=== PATIENT | male | born 1990 | race Caucasian/White ===

== ENCOUNTER 2017-05-14 20:08 | Emergency (ER) | payer OTHER ==
[~2017-05-14] VITALS: Ht 172.7 cm; Wt 95.3 kg
[2017-05-14 21:46] LABS: ABSOLUTE BASOPHILS 0.1 thou/uL (0.0-0.2); ABSOLUTE EOSINOPHILS 0.1 thou/uL (0.0-0.7); ABSOLUTE LYMPHOCYTES 2.4 thou/uL (0.8-5.3); ABSOLUTE MONOCYTES 0.6 thou/uL (0.0-1.2); ABSOLUTE NEUTROPHILS 5.3 thou/uL (1.6-8.1); BASOPHILS 0.8 %; EOSINOPHILS 1.1 %; HEMATOCRIT 40.2 % (42.0-52.0); HEMOGLOBIN 13.9 gm/dL (14.0-18.0); LYMPHOCYTES 28.5 %; MCHC 34.7 g/dL (28.0-37.0); MCV 89.2 fL (80.0-100.0); MPV 7.5 fl. (7.2-11.1); NUCLEATED RBCS 0 /100WBC; PLATELET COUNT* 234 thou/uL (150-400); POLYS 62.6 %; RDW-CV 12.6 % (10.5-14.5); WBC 8.6 thou/uL (4.0-11.0)
[2017-05-14 21:48] LABS: URINE BILIRUBIN NEGATIVE (Negative); URINE BLOOD NEGATIVE (Negative); URINE CLARITY CLEAR; URINE COLOR YELLOW; URINE GLUCOSE-RANDOM NEGATIVE (Negative); URINE KETONES NEGATIVE (Negative); URINE LEUKOCYTES-REFLEX NEGATIVE (Negative); URINE NITRITE-REFLEX NEGATIVE (Negative); URINE PROTEIN NEGATIVE (Negative); URINE SPECIFIC GRAVITY 1.015 (1.005-1.030); URINE UROBILINOGEN 0.2 E.U./dl (0.2-1.0)
[2017-05-14 21:53] LABS: ANION GAP 10 mmol/L (7-16); BUN 17 mg/dL (7-18); CALCIUM 8.8 mg/dL (8.5-10.1); CHLORIDE 102 mmol/L (98-107); CO2 29 mmol/L (21-32); GLUCOSE 96 mg/dL (70-99); POTASSIUM 3.8 mmol/L (3.5-5.1); SODIUM 141 mmol/L (136-145)
[2017-05-14 21:55] LABS: AMP/METHAMP Negative (Negative); BARBITURATES Negative (Negative); BENZODIAZEPINES Negative (Negative); COCAINE Negative (Negative); METHADONE Negative (Negative); OPIATES Negative (Negative); PCP Negative (Negative); THC Negative (Negative)
[2017-05-14 22:05] LABS: ALBUMIN 4.1 g/dL (3.4-5.0); ALKALINE PHOSPHATASE 78 U/L (46-116); SGOT 17 U/L (15-37); SGPT 28 U/L (30-65); TOTAL BILIRUBIN 0.5 mg/dL (<0.1-1.0); TOTAL PROTEIN 6.7 g/dL (6.4-8.2); TROPONIN-I LEVEL <0.06 ng/mL (<0.06)
[2017-05-14 22:25] VITALS: BP 102/63
--- NOTE | 2017-05-15 13:35 | EKG ---
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 05/15/17 [id number] Valentin Fernandez MD, FACC /EPI
== END 2017-05-14 22:25 | disposition home or self-care (01) ==
LOC: M.ERS 20:08
PROVIDERS: Personal Emergency Response Attendant
DX: R00.2 Palpitations (principal); F17.210 Nicotine dependence, cigarettes, uncomplicated; I10 Essential (primary) hypertension